=== PATIENT | male | born 1985 | race Two or more races ===

== ENCOUNTER 2020-08-07 21:19 | Emergency (ER) | payer BC ==
[2020-08-07 21:30] VITALS: BP 140/92; PULSE 89; TEMP 98.5; BMI 34.8
[2020-08-07] MEDS ORDERED: CEPHALEXIN MONOHYDRATE 500 MG CAPSULE (UD) PO ONE (22:17)
[2020-08-07] MEDS ORDERED: CEPHALEXIN MONOHYDRATE 500 MG CAPSULE (UD) ONE (22:28)
== END 2020-08-07 22:59 | disposition home or self-care (01) ==
LOC: JERFT 21:19
DX: L73.9 Follicular disorder, unspecified (principal)
CPT/HCPCS: 99283-25

== ENCOUNTER 2021-01-02 09:49 | Emergency (ER) | payer BC ==
[2021-01-02 10:06] VITALS: BP 126/75; PULSE 78; TEMP 98.7; BMI 35.6
[2021-01-02] MEDS ORDERED: METHOCARBAMOL 500 MG TABLET PO ONE (10:37)
[2021-01-02] MEDS ORDERED: IBUPROFEN 400 MG TABLET (FP) PO ONE ×2 (10:37→11:11)
[2021-01-02] MEDS ORDERED: METHOCARBAMOL 500 MG TABLET ONE (11:10)
== END 2021-01-02 11:20 | disposition home or self-care (01) ==
LOC: JERFT 09:49
DX: M62.830 Muscle spasm of back (principal)
CPT/HCPCS: 99283-25

== ENCOUNTER 2021-10-16 09:28 | Emergency (ER) | payer BC ==
[2021-10-16 09:39] VITALS: BP 120/64; PULSE 71; TEMP 97.7; BMI 35.6
[2021-10-16] MEDS ORDERED: ACETAMINOPHEN 325 MG TABLET (FP) PO ONE (10:10)
[2021-10-16] MEDS ORDERED: ACETAMINOPHEN 325 MG TABLET (FP) ONE (10:12)
== END 2021-10-16 11:22 | disposition home or self-care (01) ==
LOC: JERFT 09:28
DX: S93.401A Sprain of unspecified ligament of right ankle, initial encounter (principal)
CPT/HCPCS: 73610-TC-RT-FY; 73630-TC-RT-FY; 99284-25

== ENCOUNTER 2023-06-28 13:04 | Emergency (ER) | payer BC ==
[2023-06-28 13:12] VITALS: BP 139/95; PULSE 84; RESP 18; TEMP 98.7; BMI 36.3
[2023-06-28] MEDS ORDERED: KETOROLAC TROMETHAMINE 30 MG/1 ML VIAL ONE (13:55)
[2023-06-28] MEDS ORDERED: CYCLOBENZAPRINE HCL 10 MG TABLET (FP) ONE (13:55)
[2023-06-28] MEDS ORDERED: ACETAMINOPHEN 500 MG TABLET (FP) ONE (13:55)
[2023-06-28] MEDS: CYCLOBENZAPRINE HCL 10 MG TABLET (FP) PO ONE (14:00)
[2023-06-28] MEDS: KETOROLAC TROMETHAMINE 30 MG/1 ML VIAL IM ONE (14:00)
[2023-06-28] MEDS: ACETAMINOPHEN 500 MG TABLET (FP) PO ONE (14:00)
== END 2023-06-28 15:26 | disposition home or self-care (01) ==
LOC: JERFT 13:04
PROC: 3E0233Z Introduction of Anti-inflammatory into Muscle, Percutaneous Approach (ICD-10-PCS; principal; 2023-06-28)
DX: M54.50 Low back pain, unspecified (principal); M46.96 Unspecified inflammatory spondylopathy, lumbar region; X50.0XXA Overexertion from strenuous movement or load, initial encounter
CPT/HCPCS: 72131-TC; 99284-25